=== PATIENT | male | born 1995 | race Caucasian/White ===

== ENCOUNTER 2021-12-13 11:27 | Emergency (ER) | payer BC, SELFPAY ==
[2021-12-13 11:46] VITALS: BP 149/97; PULSE 117; RESP 20; TEMP 36.4
--- NOTE | 2021-12-13 11:47 | ED.ABDPAIN ---
HPI - Abdominal Pain General Chief Complaint: Abdominal Pain Stated Complaint: Abdominal Pain Time Seen by Provider: 12/13/21 11:50 Source: patient, family and RN notes reviewed Mode of arrival: ambulatory Limitations: no limitations History of Present Illness HPI narrative: 26-year-old male presents with concern for 4-day history of watery diarrhea. He reports more than 10 watery stools daily. He reports epigastric abdominal pain. Reports feeling of having trouble breathing. He denies vomiting. He reports he has taken Imodium for several days without relief of symptoms. He reports he has been trying to eat bland foods without relief of symptoms. He reports he does not have an appetite. He reports chills, sweats and general malaise. MD elicited complaint: abdominal pain Related Data Home Medications Medication Instructions Recorded Confirmed clonazepam 1 mg tablet 1 tablet PO BID 12/13/21 12/13/21 duloxetine 60 mg capsule,delayed 1 cap PO DAILY 12/13/21 12/13/21 release risperidone 2 mg tablet 1 tablet PO BID 12/13/21 12/13/21 sertraline 50 mg tablet 1 tablet PO BID 12/13/21 12/13/21 Allergies Allergy/AdvReac Type Severity Reaction Status Date / Time No Known Allergies Allergy Verified 12/13/21 11:45 Review of Systems Review of Systems: CONSTITUTIONAL: Reports malaise, chills, sweats ENT: Denies rhinorrhea, congestion, sinus pain, otalgia or sore throat. CARDIOVASCULAR: Denies chest pain, palpitations, or edema. RESPIRATORY: Denies cough. Reports dyspnea. GASTROINTESTINAL: Reports epigastric abdominal pain, nausea, diarrhea. Denies vomiting GENITOURINARY: Denies dysuria or hematuria. MUSCULOSKELETAL: Reports myalgia. NEUROLOGIC: Denies headache. All systems reviewed & are unremarkable except as noted in HPI and below PMFSH Social History Social History Smoking status: Never smoker Alcohol intake: current Comments At time of signature, agree with nursing past medical, surgical, social and family history. There is no relevant family history pertinent to the presenting complaint Exam Narrative: GENERAL: Nontoxic appearing and in no acute distress. HEAD: Normocephalic EYES: PERRLA, conjunctivae clear ENT: Nares clear. NECK: Supple. No lymphadenopathy CHEST: Speaks in full sentences. No respiratory distress. HEART: Regular rate and rhythm. ABDOMEN: Obese. No guarding, generalized tenderness. Bowel sounds hyperactive in all four quadrants. No organomegaly. periumbilical tenderness. No Supra public tenderness or distension. SKIN: Warm, dry, no rash. NEURO: Alert and oriented x3. PSYCH: Normal mood and affect Course Course Emergency Course: Patient and father is aware of, understands and agrees to reasons to be transferred to the emergency room. Anticipatory guidance given. Patient agrees to proceed directly to the emergency department. Portions of this record may have been created with voice recognition software Level of Care: Express Care Visit Vital Signs Vital signs: Reviewed. Transfer Transfered to: Bhavik Transfer rationale: Abdominal pain, persistent diarrhea, tachycardia Accepting physician: Michelle MDM - Abdominal Pain MDM Narrative Medical decision making narrative: Exam findings warrant further evaluation the emergency department; patient is non-toxic appearing and is in no distress. Patient is appropriate for outpatient treatment and follow-up. Critical Care Time Critical Care Time Critical Care Time: No Discharge Plan Discharge Clinical Impression: Abdominal pain Patient Disposition: Acute Care Hospital Condition: Stable Follow-up/Referrals: Jess Tucker MD [Primary Care Provider] - Time of Disposition: 12:00
== END 2021-12-13 12:00 | disposition short-term general hospital (02) ==
PROVIDERS: Emergency Provider Nurse Practitioner; PCP Family Medicine
DX: R10.33 Periumbilical pain (principal); F84.5 Asperger's syndrome; F41.9 Anxiety disorder, unspecified
CPT/HCPCS: 99212; G0463

== ENCOUNTER 2021-12-13 12:18 | Emergency (ER) | payer BC, SELFPAY ==
--- NOTE | ~2021-12-13 | CT_ITS ---
EXAMINATION: CT abdomen pelvis w con DATE: 12/13/2021 15:13 INDICATION: Left abdominal pain and diarrhea for 4 days TECHNIQUE: Computed tomography (CT) of the abdomen and pelvis was performed with 100 CC Omnipaque 300 intravenous contrast. Automated exposure control and iterative reconstruction technique were employe d. Exam dose: 1618.30 mGy-cm total exam DLP. COMPARISON: None. FINDINGS: The lung bases are clear. Normal heart size. No pericardial or pleural effusion. Small probable hepatic dome cyst. The liver is otherwise unremarkable. The gallbladder is present. No gallbladder wall thickening or pericholecystic fluid or fat stranding is detected. No pancreatic mass lesion, calcification or ductal dilatation is detected. Splenic size is within normal upper normal range, with vertical dimension of 13.3 cm. Normal morphology of the adrenal glands. No renal mass lesion or urinary tract calculus or hydroureteronephrosis. There is moderate thickness of the urinary bladder wall which may be due to underdistention, less likely cystitis. No prostate en largement is noted. Normal caliber of the abdominal aorta. No intraperitoneal or retroperitoneal or pelvic mass lesion or adenopathy or ascites. Normal appendix. There is some liquid stool in the rectosigmoid area consistent with history of diarr hea. No bowel obstruction or intraperitoneal free air is detected. No suspicious osteolytic or osteoblastic lesions. IMPRESSION: Fluid levels in the rectosigmoid area consistent with history of diarrhea; no bowel obst ruction or free air. Normal appendix Reviewed, dictated and finalized at [facility]. Reviewed, dictated and finalized at [facility]. IMPRESSION: Fluid levels in the rectosigmoid area consistent with history of d iarrhea; no bowel obstruction or free air. Normal appendix
[2021-12-13 12:20] VITALS: BP 139/102; PULSE 106; RESP 20; TEMP 36.4; O2SAT 98
--- NOTE | 2021-12-13 12:22 | ECG_ITS ---
Measurements Intervals [place] Rate: 115 P: 17 MO: 132 QRS: 16 QRSD: 82 T: 20 QT: 326 QTc: 452 Interpretive Statements SINUS TACHYCARDIA NONSPECIFIC ST & T-WAVE ABNORMALITY- ANT/INF LEADS ABNORMAL ECG Electronically Signed On 12-13-2021 12:56:15 CDT by Tez Lemus D.O.
[2021-12-13 12:37] LABS: Basophils Percent Auto 0.3 % (0.2-1.2); Eosinophils Absolute Auto 0.1 K/mm3 (0-0.3); Eosinophils Percent Auto 1.1 % (0-4.4); Hematocrit 48.2 % (42.0-52.0); Hemoglobin 16.4 g/dL (14.0-18.0); Immature Granulocyte Absolute 0.04 K/mm3 (0.00-0.031); Immature Granulocyte Percent A 0.3 % (0-0.5); Lymphocytes Absolute Auto 0.83 K/mm3 (0.9-3.2); Lymphocytes Percent Auto 6.5 % (18.3-44.2); Mean Corpuscular Volume 79.4 fl (80-100); Mean Platelet Volume 10.4 fl (7.4-10.4); Monocytes Absolute Auto 1.2 K/mm3 (0.1-0.6); Monocytes Percent Auto 9.3 % (2.6-8.5); Neutrophils Absolute Auto 10.6 K/mm3 (1.3-6.7); Neutrophils Percent Auto 82.5 % (45.5-73.1); Platelet Count Result 271 k/mm3 (150-375); Red Blood Count 6.07 M/mm3 (4.6-6.20); Red Cell Distribution Width 13.2 % (11.5-14.5); White Blood Count 12.9 K/mm3 (4.5-10.0)
[2021-12-13 12:47] LABS: Alanine Aminotransferase 34 U/L (6-50); Albumin Level 4.7 g/dL (3.5-5.1); Alkaline Phosphatase 100 U/L (38-126); Anion Gap 8 mmol/L (8-16); Aspartate Amino Transferase 20 U/L (17-59); Bilirubin,Total 1.4 mg/dL (0.2-1.3); Blood Urea Nitrogen 9 mg/dL (9-20); Carbon Dioxide 23 mmol/L (22-30); Chloride 104 mmol/L (98-107); Estimated CRCL calculation 138 ml/min; Estimated Glomerular Filt Rate > 60; Glucose 109 mg/dL (65-110); Lipase 28 U/L (23-300); Potassium 3.9 mmol/L (3.4-5.0); Sodium 135 mmol/L (137-145)
[2021-12-13 13:37] LABS: Appearance Urine Clear (Clear); Bilirubin Urine 2+ (Negative); Blood Urine Negative (Negative); Color Urine Amber (Yellow); Glucose Urine UA Negative (Negative); Ketones Urine Trace mg/dL (Negative); Leukocyte Esterase Ur Negative LEU/UL (Negative); Nitrate Urine Negative (Negative); Protein Urine Trace mg/dL (Negative)
[2021-12-13 13:46] LABS: Add Urine Microscopic? YES; Mucus Urine Moderate /lpf; RBC Urine 0-2 /hpf (0-2); Squamous Epithelial Cell Urine Rare /hpf (Few); WBC Urine 0-3 /hpf
--- NOTE | 2021-12-13 14:06 | ED.ABDPAIN ---
HPI - Abdominal Pain General Chief Complaint: Abdominal Pain Stated Complaint: abdominal pain with diarrhea x 4 days Time Seen by Provider: 12/13/21 13:55 History of Present Illness HPI narrative: Patient is a 26-year-old male who presents ER with diarrhea. Ongoing for 4 days. No nausea or vomiting. No blood in his stool. Reports its clear. Denies fevers or chills or sweats. Family had similar symptoms 1 week ago. He has tried some Imodium without improvement. Related Data Home Medications Medication Instructions Recorded Confirmed clonazepam 1 mg tablet 1 tablet PO BID 12/13/21 12/13/21 duloxetine 60 mg capsule,delayed 1 cap PO DAILY 12/13/21 12/13/21 release risperidone 2 mg tablet 1 tablet PO BID 12/13/21 12/13/21 sertraline 50 mg tablet 1 tablet PO BID 12/13/21 12/13/21 Allergies Allergy/AdvReac Type Severity Reaction Status Date / Time No Known Allergies Allergy Verified 12/13/21 11:45 Review of Systems Review of Systems: All systems reviewed & are unremarkable except as noted in HPI and below Constitutional: Constitutional: Denies chills, Denies fatigue and Denies fever(s) ENT: Denies nasal congestion and Denies sore throat Cardiovascular: Cardiovascular: Denies chest pain and Denies radiating jaw, neck or arm pain Respiratory: Respiratory: Denies cough and Denies dyspnea Gastrointestinal: Gastrointestinal: Denies abdominal pain, Reports diarrhea, Denies nausea and Denies vomiting PMFSH Past Medical History Medical History (Updated 12/13/21 @ 17:06 by Yosvany Black MD) Healthy adult male Surgical History Surgical History (Updated 12/13/21 @ 17:06 by Yosvany Black MD) No pertinent past surgical history Social History Social History Smoking status: Never smoker Alcohol intake: current Exam Narrative: GENERAL: Well-appearing, well-nourished, and in no acute distress. HEAD: Normocephalic, atraumatic. CHEST: Clear to auscultation. No respiratory distress. HEART: Regular rate and rhythm. Normal peripheral pulses. ABDOMEN: Soft, nontender, nondistended. EXTREMITIES: Normal range of motion. No edema. SKIN: Warm, dry, no rash. NEURO: Alert and oriented x3. PSYCH: Normal mood and affect. Course Course Emergency Course: Patient resting comfortably. Informed of results. Hydrated. Discharge home. Vital Signs Vital signs: Vital Signs Temperature 97.6 F 12/13/21 12:20 Pulse Rate 106 H 12/13/21 12:20 Respiratory Rate 20 12/13/21 12:20 Blood Pressure 139/102 H 12/13/21 12:20 Pulse Oximetry 98 12/13/21 12:20 Oxygen Delivery Room Air 12/13/21 12:20 Temperature 97.6 F 12/13/21 12:20 Pulse Rate 98 12/13/21 16:36 Respiratory Rate 14 12/13/21 16:36 Blood Pressure 135/84 12/13/21 16:36 Pulse Oximetry 97 12/13/21 16:36 Oxygen Delivery Room Air 12/13/21 12:20 MDM - Abdominal Pain Lab Data Result diagrams: 12/13/21 12:32 12/13/21 12:32 Labs: Lab Results 12/13/21 12/13/21 12/13/21 Range/Units 12:32 12:32 13:25 WBC 12.9 H (4.5-10.0) K/mm3 RBC 6.07 (4.6-6.20) M/mm3 Hgb 16.4 (14.0-18.0) g/dL Hct 48.2 (42.0-52.0) % MCV 79.4 L (80-100) fl MCH 27.0 (26-34) pg MCHC 34.0 (32-36) g/dl RDW 13.2 (11.5-14.5) % Plt Count 271 (150-375) k/mm3 MPV 10.4 (7.4-10.4) fl Immature Gran % (Auto) 0.3 (0-0.5) % Neut % (Auto) 82.5 H (45.5-73.1) % Lymph % (Auto) 6.5 L (18.3-44.2) % [place] % (Auto) 9.3 H (2.6-8.5) % Eos % (Auto) 1.1 (0-4.4) % Baso % (Auto) 0.3 (0.2-1.2) % Lymph # (Auto) 0.83 L (0.9-3.2) K/mm3 [place] # (Auto) 1.2 H (0.1-0.6) K/mm3 Eos # (Auto) 0.1 (0-0.3) K/mm3 Baso # (Auto) 0.0 (0.0-0.1) K/mm3 Abs Immat Gran (auto) 0.04 H (0.00-0.031) K/mm3 Absolute Neuts (auto) 10.6 H (1.3-6.7) K/mm3 Absolute Nucleated RBC 0.0 (0.0-0.012) K/mm3 Nucleated RBC % 0.0 (0.0-0.2) % Sodium 135
[2021-12-13] MEDS: SODIUM CHLORIDE 0.9% IV 1,000 ML 999 ML IV CONT (14:57)
[2021-12-13 15:00] VITALS: BP 141/87; PULSE 92; RESP 14; O2SAT 96
[2021-12-13 16:36] VITALS: BP 135/84; PULSE 98; RESP 14; O2SAT 97
[2021-12-13 17:15] VITALS: PULSE 77; RESP 16; O2SAT 98
== END 2021-12-13 17:16 | disposition home or self-care (01) ==
PROVIDERS: Emergency Medicine; Emergency Provider Emergency Medicine; PCP Family Medicine
DX: K52.9 Noninfective gastroenteritis and colitis, unspecified (principal)
CPT/HCPCS: 36415; 74177; 80053; 81001; 83690; 85025; 93005; 96360; 99284; J7030; Q9967